=== PATIENT | female | born 1950 | race Caucasian/White ===

== ENCOUNTER 2017-01-13 03:50 | Inpatient (IN) ==
[2017-01-06 09:44] LABS: MANUAL DIFF NEEDED? NO; URINE MICRO REVIEW NEEDED? NO; URINE SOURCE CLEAN CATCH
[2017-01-06 09:49] LABS: BASO% 0.3 % (0.0-0.8); EOS# 0.16 X1000 (0.0-0.7); EOS% 2.7 % (0.0-10.0); HEMATOCRIT 39.7 % (37.0-47.0); HEMOGLOBIN 12.8 g/dL (12.0-16.0); LYMPH# 1.51 X1000 (1.2-3.4); LYMPH% 25.3 % (20.5-51.1); MCH 29.4 PG (27-31); MCHC 32.2 g/dL (33-37); MCV 91.3 FL (81-99); MONO# 0.54 X1000 (0.11-0.59); MPV 11.8 FL (7.4-10.4); NEUT% 62.7 % (42.2-75.2); PLT 194 X1000 (130-400); RBC 4.35 XMIL (4.2-5.4)
[2017-01-06 09:50] LABS: BILIRUBIN URINE NEGATIVE (NEGATIVE); BLOOD URINE NEGATIVE (NEGATIVE); COLOR YELLOW; GLUCOSE URINE NEGATIVE (NEGATIVE); LEUKOCYTES URINE NEGATIVE (NEGATIVE); NITRITE URINE NEGATIVE (NEGATIVE); PH URINE 5.5; PROTEIN URINE TRACE mg/dL (NEGATIVE); SP GRAVITY URINE 1.015; TURBIDITY URINE CLEAR (CLEAR); UROBILINOGEN URINE NORMAL (NORMAL)
[2017-01-06 09:52] LABS: UR EPITHELIAL CELLS <10 /HPF (<10); URINE BACTERIA 1+ /HPF; URINE RBC <10 /HPF (<10); URINE WBC <10 /HPF (<10)
[2017-01-06 09:57] LABS: INR 0.94; PROTIME 9.8 Seconds (9.2-11.7); PTT 30.3 Seconds (22.0-36.0)
--- NOTE | 2017-01-06 10:24 | EKG Report ---
Test Performed on : 01/06/2017 09:06:28 AM Test Reason : PAT Blood Pressure : / mmHG Vent. Rate : 074 BPM Atrial Rate : 074 BPM P-R Int : 164 ms QRS Dur : 074 ms QT Int : 408 ms P-R-T Axes : 061 059 061 degrees QTc Int : 452 ms Normal sinus rhythm. RSR' or QR pattern in V1 suggests right ventricular conduction delay Normal ECG When compared with ECG of 24-SEP-2015 14:22, No significant change was found Confirmed by Modesto Jolley DO ([id number]) on 01/09/2017 3:35:49 PM
[2017-01-06 10:26] LABS: AGAP 11; BUN 13 mg/dL (8-22); CALCIUM 8.8 mg/dL (8.8-10.2); CHLORIDE 104 mmol/L (98-107); COSMO 290; POTASSIUM 4.1 mmol/L (3.5-5.1); SODIUM 146 mmol/L (136-145); TCO2 31 mmol/L (25-35)
[2017-01-13] MEDS ORDERED: DIPRIVAN 1% 500 MG/50 ML BOTTLE ONE (06:25)
[2017-01-13] MEDS ORDERED: VERSED ONE (06:29)
[2017-01-13] MEDS ORDERED: FENTANYL ONE (06:29)
[2017-01-13] MEDS ORDERED: CELEBREX ONE (07:13)
[2017-01-13] MEDS ORDERED: REGLAN ONE (07:13)
[2017-01-13] MEDS ORDERED: COLACE ONE (07:13)
[2017-01-13] MEDS ORDERED: KEFZOL 1 GM/D5W 1 GM/50 ML IVPB ONE (07:13)
[2017-01-13] MEDS ORDERED: LYRICA ONE (07:13)
[2017-01-13] MEDS ORDERED: PEPCID ONE (07:13)
[2017-01-13] MEDS ORDERED: LR 1,000 ML ONE (07:14)
[2017-01-13] MEDS ORDERED: TORADOL ONE (07:37)
[2017-01-13] MEDS ORDERED: DURAMORPH ONE (07:37)
[2017-01-13] MEDS ORDERED: EXPAREL 1.3% ONE ×2 (07:38→08:05)
[2017-01-13] MEDS ORDERED: CYKLOKAPRON 1,000 MG/NS 1,000 MG/100 ML IVPB ONE ×2 (07:38→07:39)
[2017-01-13] MEDS ORDERED: VANCOMYCIN ONE (07:38)
[2017-01-13] MEDS ORDERED: SODIUM CHLORIDE 0.9% ONE (07:38)
[2017-01-13] MEDS ORDERED: NEOSPORIN G.U. IRRIGANT ONE (07:38)
[2017-01-13] MEDS ORDERED: SENSORCAINE-MPF 0.5%/EPI 1:200,000 ONE (07:38)
[2017-01-13] MEDS ORDERED: OFIRMEV 1000 MG/ISOTONIC SOLN 1,000 MG/100 ML BOTTLE ONE (08:38)
[2017-01-13] MEDS ORDERED: DECADRON ONE (08:38)
[2017-01-13] MEDS ORDERED: ZOFRAN ONE (08:38)
[2017-01-13 09:11] LABS: URINE MICRO REVIEW NEEDED? NO; URINE SOURCE CATH
[2017-01-13 09:21] LABS: BILIRUBIN URINE NEGATIVE (NEGATIVE); BLOOD URINE NEGATIVE (NEGATIVE); COLOR YELLOW; GLUCOSE URINE NEGATIVE (NEGATIVE); LEUKOCYTES URINE NEGATIVE (NEGATIVE); NITRITE URINE NEGATIVE (NEGATIVE); PROTEIN URINE NEGATIVE (NEGATIVE); SP GRAVITY URINE 1.006; TURBIDITY URINE CLEAR (CLEAR); UROBILINOGEN URINE NORMAL (NORMAL)
[2017-01-13 09:22] LABS: UR EPITHELIAL CELLS <10 /HPF (<10); URINE BACTERIA NEGATIVE /HPF; URINE RBC <10 /HPF (<10); URINE WBC <10 /HPF (<10)
--- NOTE | 2017-01-13 11:09 | OPERATIVE NOTE ---
PROCEDURE DATE: 01/13/2017 PREOPERATIVE DIAGNOSIS: Degenerative osteoarthritis right knee. POSTOPERATIVE DIAGNOSIS: Degenerative osteoarthritis right knee. PROCEDURE: Right total knee arthroplasty with a DePuy Attune size 5 posterior stabilized femur, size 4 tibial tray, a 5 mm rotating platform tibial insert, and a 32 mm medialized anatomic patella. SURGEON: Pedro Arana. SUPERVISING CHEF: HELEN Velasquez. SECOND DIALYSIS CHIEF EQUIPMENT TECHNICIAN: Corey Jose RN. ANESTHESIA: Spinal. IV FLUIDS: 1000 mL lactated Ringer's. ESTIMATED BLOOD LOSS: 20 mL. TOURNIQUET TIME: 75 minutes at 350 mmHg. COMPLICATIONS: None. INDICATION: The patient is a pleasant 66-year-old female with a chronic history of worsening pain to the right knee. The patient x-rays revealed degenerative changes consistent with osteoarthritis. Recommendation to proceed with right total knee arthroplasty was offered. Risks and benefits of surgery were explained, including the risks of anesthesia, , bleeding, infection, failure to relieve pain, postoperative stiffness, nerve injury, blood clots and other imponderables. All questions were answered of the patient and family. The patient wished to proceed with surgery. DETAILS OF OPERATION: The patient was taken to the operating room and placed supine on the operating table. Once adequate anesthesia was obtained, patient's right lower extremity was subsequently prepped and draped in usual sterile fashion. An Esmarch was used to exsanguinate the right lower extremity and the tourniquet was inflated to 350 mmHg. A standard anterior incision made with the skin knife. Medial and lateral skin envelopes were developed. Standard medial parapatellar arthrotomy was performed. Patella fat pad was excised. The retractors were then placed 1 cm anterior to the PCL insertio and a starting reamer was passed. The intramedullary guide with a distal femoral cutting block was pinned in position. Distal femoral cut was then performed in standard fashion. A sizing block was placed and measured size 5. Corresponding pins were placed. The size 5 cutting block was placed in position. Anterior, posterior, chamfer cuts were then made. Attention was then turned to the proximal tibia. Further resection of the ACL and PCL was performed. Using the extramedullary guide, the proximal tibia cutting block was pinned in position. Had good alignment confirmed with the alignment erlinda. The proximal tibia was then resected. Medial and lateral meniscus was excised. A curved osteotome was used to remove the posterior osteophytes off the distal femur. A spacer block was placed and has good soft tissue balance with flexion and extension. The attention was then turned to the proximal tibia. The size 4 tibial tray appeared to be the correct size. This was pinned in position. This was followed by a central reamer and then followed by a fin punch. The box cutting guide was then placed on the distal femur. A box cut was performed. A size 5 trial component was placed and 2 lug holes were drilled. A trial tibial insert was then placed. Had good soft tissue balance with flexion and extension. The patella was everted and resected in standard fashion. A 32 appeared to be the correct size. Corresponding holes were drilled. A 32 trial component was then placed and good patellofemoral tracking. Trial components were then removed. Copious irrigation then performed with antibiotic pulsatile lavage while vancomycin was mixed with cement on the back table. Sequential cementing was then performed, first with the tibial tray and excess cement was removed with a Stratford followed by the femoral component and excess cement was removed with a Stratford. A trial tibial insert in full extension and axial loading was maintained while cement was curing. The patella cemented in standard fashion. Exparel was then placed in the deep soft tissue, as well as subcutaneous tissue while the cement was curing. After cement had cured, peripheral cement was removed with small osteotome. A size 5 tibial insert appeared to be the correct size. The trial component was removed. Exparel was placed in the deep posterior capsule. The wound was copiously irrigated with antibiotic pulsatile lavage. The 5 mm rotating platform tibial insert was then placed. The knee was then carried through range of motion, good soft tissue balancing, good patellofemoral tracking. A 1/8 Hemovac drain was placed and was not sewn in. Copious irrigation then performed once again with antibiotic pulsatile lavage. Number 1 Vicryl was used to repair the arthrotomy, followed by 2-0 Vicryl for subcutaneous tissue. The skin gurdeep were then placed. Adaptic, sterile 4 x 4's, Webril, a cryo unit and Ziggy wrap was applied to the right lower extremity. Patient tolerated the procedure well with no complications and transferred to recovery room in stable condition. cc: Pedro Arana MD
[2017-01-13] MEDS ORDERED: NS 1,000 ML ONE ×2 (11:14→21:53)
[2017-01-13] MEDS ORDERED: MILK OF MAGNESIA PO PRN (11:15)
[2017-01-13] MEDS ORDERED: MORPHINE IV PRN (11:15)
[2017-01-13] MEDS ORDERED: ZOFRAN IV PRN (11:15)
[2017-01-13] MEDS ORDERED: ZOFRAN PO PRN (11:15)
--- NOTE | 2017-01-13 11:37 | Diag Imaging Result Doc PS360 ---
EXAM: KNEE 1-2 VIEWS-RIGHT HISTORY: post op total knee TECHNIQUE: Portable AP COMPARISON: None. FINDINGS: There has been recent orthopedic replacement of the right knee. There are anterior skin gurdeep and there is a superior surgical drain. No fracture. No dislocation. IMPRESSION: Good alignment to the femoral and tibial components following orthopedic replacement of the right knee. Electronically signed by Mehran Padilla 01/13/2017 11:34 AM
[2017-01-13] MEDS: COZAAR PO SCH (12:36)
[2017-01-13] MEDS: MAXZIDE-25 PO SCH (12:37)
[2017-01-13] MEDS: PATIENT'S OWN MED PO SCH (12:37)
[2017-01-13] MEDS: PEPCID PO SCH (12:38)
[2017-01-13] MEDS: OXYCONTIN PO SCH ×2 (12:38→13:34)
[2017-01-13] MEDS: LIBRAX PO SCH ×2 (13:35→16:49)
[2017-01-13] MEDS ORDERED: OFIRMEV 1000 MG/ISOTONIC SOLN 1,000 MG/100 ML BOTTLE IV SCH (15:00)
[2017-01-13] MEDS: KEFZOL 1 GM/D5W 1 GM/50 ML IVPB IV SCH (16:51)
[2017-01-13] MEDS ORDERED: NICODERM PATCH TD PRN (17:38)
[2017-01-13] MEDS ORDERED: XANAX PO SCH (21:00)
[2017-01-13] MEDS ORDERED: LIPITOR PO SCH (21:00)
[2017-01-13] MEDS ORDERED: ZANAFLEX PO SCH (21:00)
[2017-01-13] MEDS ORDERED: TYLENOL PO PRN (21:30)
[2017-01-13] MEDS: LYRICA PO SCH (21:56)
[2017-01-13] MEDS: PERIDEX MT SCH (21:56)
[2017-01-13] MEDS: OXY IR PO PRN (21:59)
[2017-01-13] MEDS: COLACE PO SCH (21:59)
[2017-01-14] MEDS: KEFZOL 1 GM/D5W 1 GM/50 ML IVPB IV SCH (00:22)
[2017-01-14] MEDS: OXY IR PO PRN ×2 (03:18→10:34)
[2017-01-14] MEDS ORDERED: TYLENOL PO SCH (05:00)
[2017-01-14] MEDS ORDERED: TYLENOL PO PRN (05:11)
[2017-01-14 05:59] LABS: HEMATOCRIT 32.4 % (37.0-47.0); HEMOGLOBIN 10.3 g/dL (12.0-16.0)
[2017-01-14] MEDS ORDERED: XARELTO PO SCH (06:00)
[2017-01-14 06:13] LABS: AGAP 9; BUN 16 mg/dL (8-22); CALCIUM 8.6 mg/dL (8.8-10.2); CHLORIDE 107 mmol/L (98-107); COSMO 287; POTASSIUM 4.3 mmol/L (3.5-5.1); SODIUM 143 mmol/L (136-145); TCO2 27 mmol/L (25-35)
--- NOTE | 2017-01-14 06:58 | PROGRESS NOTE ---
DATE: 01/14/2017 SUBJECTIVE: The patient is a pleasant 66-year-old female who is 1 day status post right total knee arthroplasty. She is currently resting comfortably. She is sitting in a chair. She was able to ambulate with physical therapy yesterday. OBJECTIVE: On physical exam of the patient's right lower extremity, her dressing is intact. Her calf is soft. She has active dorsiflexion and plantar flexion. Her hemoglobin is 10.3 and hematocrit is 32.4. IMPRESSION: Postop day #1 status post right total knee arthroplasty. PLAN: At this point, we will change her dressing and discontinue her drain and Garcia. We will also Hep-Lock her IV. Will plan on discharging home after physical therapy. We will arrange for home physical therapy. She will follow up in 12-14 days. cc: Pedro Arana MD
[2017-01-14] MEDS ORDERED: BREO ELLIPTA 100/25 MCG INH INH SCH (07:30)
[2017-01-14] MEDS ORDERED: ANORO ELLIPTA 62.5-25 MCG INH INH SCH (07:30)
[2017-01-14 07:34] VITALS: BP 135/70
[2017-01-14] MEDS: COZAAR PO SCH (08:10)
[2017-01-14] MEDS: MAXZIDE-25 PO SCH (08:10)
[2017-01-14] MEDS: LIBRAX PO SCH (08:11)
[2017-01-14] MEDS: LYRICA PO SCH (08:11)
[2017-01-14] MEDS: PEPCID PO SCH (08:11)
[2017-01-14] MEDS: COLACE PO SCH (08:11)
[2017-01-14] MEDS: OXYCONTIN PO SCH (08:11)
[2017-01-14] MEDS: PERIDEX MT SCH (08:12)
[2017-01-14] MEDS: PATIENT'S OWN MED PO SCH (10:36)
== END 2017-01-14 12:09 | disposition home health service (06) ==
LOC: SURHOLD 03:50 → 4N 10:13
PROVIDERS: ADMIT Orthopaedic Surgery Adult Reconstructive Orthopaedic Surgery; ATTEND Orthopaedic Surgery Adult Reconstructive Orthopaedic Surgery